=== PATIENT | male | born 1995 | race Caucasian/White ===

== ENCOUNTER 2023-05-10 17:44 | Emergency (ER) | payer SELFPAY ==
[~2023-05-10] VITALS: Ht 180 cm; Wt 93.0 kg
--- NOTE | 2023-05-10 17:53 | ED Lower Extremity ---
General Chief Complaint: Laceration Stated Complaint: L LEG LAC Source: patient Exam Limitations: no limitations History of Present Illness Date Seen by Provider: May 10, 2023 Time Seen by Provider: 17:40 Initial Comments 28-year-old male presents for a cut to his left medial thigh. He was using a box knife cutting wrong direction. Injury happened just prior to arrival. Does not know when his last tetanus shot was. All other systems reviewed and negative except documented per HPI. Voice recognition software was used to help create this chart Allergies and Home Medications Allergies Coded Allergies: No Known Drug Allergies (Unverified , 05/10/23) Patient Home Medication List Home Medication List Reviewed: Yes Review of Systems Constitutional: see HPI Past [id number]-[id number] Hx Patient Social History Tobacco Use?: No Use of E-Cig and/or Vaping dev: No Substance use?: No Alcohol Use?: No Physical Exam Vital Signs Capillary Refill : Height, Weight, BMI Height: '" Weight: lbs. oz. kg; BMI Method: General Appearance: WD/WN, no apparent distress Hips: bilateral hip non-tender, bilateral hip normal inspection, bilateral hip normal range of motion Legs: bilateral leg non-tender, bilateral leg normal range of motion; left leg other (1 cm laceration of left medial thigh about 5 cm above the knee joint) Knees: bilateral knee non-tender, bilateral knee normal inspection, bilateral knee normal range of motion Ankles: bilateral ankle non-tender, bilateral ankle normal inspection, bilateral ankle normal range of motion Skin: other (1 cm laceration as scribed above) Departure Impression Primary Impression: Leg laceration Qualified Codes: S81.812A - Laceration without foreign body, left lower leg, initial encounter Disposition: 01 HOME, SELF-CARE Condition: Stable Departure-Patient Inst. Referrals: NO,LOCAL PHYSICIAN (PCP/Family) Primary Care Physician Patient Instructions: Wound Care Add. Discharge Instructions: The wound will heal in about 2 weeks total. Do not submerge it in water but you may shower like normal. Return to the emergency department for any redness that spreading or drainage looks like pus. All discharge instructions reviewed with patient and/or family. Voiced understanding. MELIA MEJIA DO May 10, 2023 17:53
[2023-05-10] MEDS ORDERED: TETANUS,DIPTH,PERTUSS P/F (BOOSTRIX) 0.5 ML VIAL IM ONE (18:00)
[2023-05-10 18:04] VITALS: BP 124/62
== END 2023-05-10 18:04 | disposition home or self-care (01) ==
LOC: ER FS 17:50
DX: S71.112A Laceration without foreign body, left thigh, initial encounter (principal); Z28.310 Unvaccinated for COVID-19; Z23 Encounter for immunization; W26.0XXA Contact with knife, initial encounter
CPT/HCPCS: 90715